=== PATIENT | female | born 1980 | race American Indian/Alaskan Native ===

== ENCOUNTER 2019-10-03 12:47 | Outpatient (CLI) | payer BC ==
--- NOTE | 2019-10-03 13:50 | Mammography Report ---
DIGITAL DIAGNOSTIC MAMMOGRAM WITH CAD, 10/03/2019 INDICATION: Recalled for asymmetries. ABNORMAL MAMMOGRAM TECHNIQUE: Digital right mammographic imaging was performed. This examination was interpreted with the benefit of Computer-aided Detection analysis. COMPARISON: 09/05/2019 FINDINGS: Breast Density: The breasts are heterogeneously dense, which may obscure small masses. ML, rolled CC and spot compression MLO and CC views were performed and are negative. Satisfactory eff acement of asymmetries. IMPRESSION: No mammographic evidence of malignancy. Follow up recommendation: Routine yearly BI-RADS Category 1: Negative. A "normal" or negative report should not discourage follow up or biopsy of a clinically significant f inding. A written summary of these findings will be mailed to the patient. The patient will be entered into a mammography reporting system which will generate a reminder letter for the patient's next appointmen t at the appropriate interval. According to the [employer], yearly mammograms are recommended starting at age 40 and continuing as long as a woman is in good health. Breast MRI is recommended for women with an prasad roximately 20-25% or greater lifetime risk of breast cancer, including women with a strong family his tory of breast or ovarian cancer and women who have been treated for Hodgkin's disease. Signer Name: Jackson Encarnacion MD Signed: 10/03/2019 1:46 PM Workstation Name: [id number]
== END 2019-10-03 12:48 | disposition home or self-care (01) ==
LOC: SPVWC 12:47
PROVIDERS: ATTEND Surgery
DX: R92.8 Other abnormal and inconclusive findings on diagnostic imaging of breast (principal)

== ENCOUNTER 2020-09-10 14:52 | Outpatient (CLI) | payer BC ==
--- NOTE | 2020-09-10 15:29 | Mammography Report ---
DIGITAL SCREENING MAMMOGRAM WITH CAD, 09/10/2020 CLINICAL INFORMATION / INDICATION: Routine screening mammography. TECHNIQUE: Digital bilateral 2D mammography was obtained in the craniocaudal and mediolateral obliqu e projections. This examination was interpreted with the benefit of Computer-Aided Detection analysis . COMPARISON: 10/03/2019, 09/05/2019, 10/18/2018, 08/27/2018 FINDINGS: Breast Density: The breasts are heterogeneously dense, which may obscure small masses. No dominant mass, suspicious calcifications, or architectural distortion in either breast. A left breast biopsy clip is again seen. IMPRESSION: No mammographic evidence of malignancy. Follow up recommendation: Routine yearly BI-RADS Category 2: Benign. A "normal" or negative report should not discourage follow up or biopsy of a clinically significant f inding. A written summary of these findings will be mailed to the patient. The patient will be entered into a mammography reporting system which will generate a reminder letter for the patient's next appointmen t at the appropriate interval. The [employer] recommends yearly mammograms starting at age 40 and continuing as l carmen as a woman is in good health. Breast MRI is recommended for women with an approximate 20-25% or greater lifetime risk of breast cancer, including women with a strong family history of breast or ova ezra cancer or who have been treated for Hodgkin's disease. Signer Name: Mo Arboleda MD Signed: 09/10/2020 3:24 PM Workstation Name: [id number]
== END 2020-09-10 14:53 | disposition home or self-care (01) ==
LOC: SPVWC 14:52
PROVIDERS: ATTEND Surgery
DX: Z12.31 Encounter for screening mammogram for malignant neoplasm of breast (principal)
CPT/HCPCS: 77067

== ENCOUNTER 2021-03-12 09:17 | Outpatient (CLI) | payer BC ==
--- NOTE | 2021-03-12 14:10 | Mammography Report ---
DIGITAL DIAGNOSTIC MAMMOGRAM WITH CAD , 03/12/2021 CLINICAL INFORMATION / INDICATION: Postprocedure mammogram for documentation of clip placement and co rrelation ABNORMAL MAMMO TECHNIQUE: Digital left mammographic imaging was performed. This examination was interpreted with the benefit of Computer-aided Detection analysis. COMPARISON: Prior mammogram 09/10/2020 FINDINGS: Breast Density: The breasts are heterogeneously dense, which may obscure small masses. In the upper o uter quadrant of the left breast, posterior depth, there is a new biopsy clip present in the 1-2:00 l ocation. This is a few centimeters superior and lateral to the previously noted biopsy clip. Asymmetr ic density is present in the upper outer quadrant in the vicinity of both clips which has been stable mammographically. IMPRESSION: New biopsy clip is present in the 1-2:00 location of the posterior left breast, a few joselin timeters superolateral to previously noted biopsy clip. Follow up recommendation: Awaiting pathology results Post biopsy imaging. A "normal" or negative report should not discourage follow up or biopsy of a clinically significant f inding. A written summary of these findings will be mailed to the patient. The patient will be entered into a mammography reporting system which will generate a reminder letter for the patient's next appointmen t at the appropriate interval. According to the [employer], yearly mammograms are recommended starting at age 40 and continuing as long as a woman is in good health. Breast MRI is recommended for women with an prasad roximately 20-25% or greater lifetime risk of breast cancer, including women with a strong family his tory of breast or ovarian cancer and women who have been treated for Hodgkin's disease. Signer Name: Adriana Fields MD Signed: 03/12/2021 2:06 PM Workstation Name: [id number]
== END 2021-03-12 09:18 | disposition home or self-care (01) ==
LOC: SPVWC 09:17
PROVIDERS: ATTEND Surgery
DX: R92.8 Other abnormal and inconclusive findings on diagnostic imaging of breast (principal)

== ENCOUNTER 2021-03-15 08:03 | Outpatient (CLI) | payer BC | END 2021-03-15 08:04 | disposition home or self-care (01) | LOC: LABHHL 08:03 | PROVIDERS: ATTEND Surgery | DX: N63.21 Unspecified lump in the left breast, upper outer quadrant (principal) | CPT/HCPCS: 88305 ==